=== PATIENT | female | born 1995 | race Two or more races ===

== ENCOUNTER 2017-02-10 21:19 | Emergency (ER) | payer BC ==
[2017-02-10 21:39] VITALS: BP 105/68
--- NOTE | 2017-02-10 22:53 | RAD ---
INDICATION: Left ankle injury. TECHNIQUE: 3 views of the left ankle were obtained. FINDINGS: Soft tissue swelling is noted along the anterolateral aspect of the ankle. No fracture is seen. Joint spaces appear maintained. IMPRESSION: SOFT TISSUE SWELLING, NO FRACTURE IS SEEN.
--- NOTE | 2017-04-21 10:57 | ED ---
Lower Extremity - HPI Summary HPI Summary: Patient was running when she stepped in a pothole and rolled her left ankle. She was unable to continue running but was able to hobble home on the ankle. She had immediate pain and swelling. She denies previous injury to this ankle. No bruising or N/T. - History of Current Complaint Chief Complaint: EDExtremityLower Stated Complaint: LEFT ANKLE INJURY Time Seen by Provider: 02/10/17 21:53 Hx Obtained From: Patient Mechanism Of Injury: Twisted Onset of Pain: Immediate Onset/Duration: Hours Severity Initially: Moderate Severity Currently: Moderate Pain Intensity: 0 Timing: Constant Location: Is Discrete @ - left ankle Character Of Pain: Dull, Aching Associated Signs And Symptoms: Positive: Swelling Aggravating Factor(s): Standing, Movement Alleviating Factor(s): Nothing Able to Bear Weight: Yes - with pain - Allergies/Home Medications Allergies/Adverse Reactions: Allergies Allergy/AdvReac Type Severity Reaction Status Date / Time Sulfa Antibiotics Allergy Unknown Verified 02/10/17 21:29 Reaction Details PMH/Surg Hx/FS Hx/Imm Hx Previously Healthy: Yes Infectious Disease History: No Infectious Disease History: Denies: Traveled Outside the [place] in Last 30 Days - Family History Known Family History: Positive: None - Social History Occupation: Student Lives: Alone Alcohol Use: Rare Substance Use Type: Reports: None Smoking Status (MU): Never Smoked Tobacco Review of Systems Positive: Myalgia, Decreased ROM, Edema Negative: Bruising Negative: Paresthesia, Numbness All Other Systems Reviewed And Are Negative: Yes Physical Exam Triage Information Reviewed: Yes Vital Signs On Initial Exam: Initial Vitals Temp Pulse Resp BP Pulse Ox 98.0 F 89 16 105/68 100 02/10/17 21:36 02/10/17 21:36 02/10/17 21:36 02/10/17 21:36 02/10/17 21:36 Vital Signs Reviewed: Yes Appearance: Positive: Well-Appearing, Well-Nourished, Pain Distress Skin: Positive: Warm, Skin Color Reflects Adequate Perfusion, Dry, Soft Head/Face: Positive: Normal Head/Face Inspection Eyes: Positive: EOMI, JENNA, Conjunctiva Clear ENT: Positive: Hearing grossly normal Respiratory/Lung Sounds: Positive: Breath Sounds Present Cardiovascular: Positive: RRR Musculoskeletal: Positive: Limited @ - movement in all planes limited by pain, Pain @ - TTP lateral malleoli and ATFL, Edema Left - lateral ankle Neurological: Positive: Sensory/Motor Intact, Alert, Oriented to Person Place, Time, NV Bundle Intact Distally, Abnormal Gait Psychiatric: Positive: Affect/Mood Appropriate AVPU Assessment: Alert Diagnostics - Vital Signs Vital Signs Temp Pulse Resp BP Pulse Ox 02/10/17 21:36 98.0 F 89 16 105/68 100 - Laboratory Lab Statement: Any lab studies that have been ordered have been reviewed, and results considered in the medical decision making process. - Radiology No standard instances Xray Interpretation: No Acute Changes Radiology Interpretation Completed By: Radiologist Lower Extremity Course/Dx - Diagnoses Differential Diagnosis/HQI/PQRI: Positive: Arthritis, Bursitis, Cellulitis, Contusion, Dislocation, Fracture (Closed), Sprain, Strain Provider Diagnoses: Left ankle sprain Discharge - Discharge Plan Condition: Stable Disposition: HOME Patient Education Materials: Ankle Sprain (ED), Ankle Stirrup Splint (ED) Referrals: [facility] ALEXI Mcclelland [Primary Care Provider] - Additional Instructions: Use the crutches and wear your splint to protect you as your pain improves. Come out of the splint several times daily to perform gentle range of motion exercises to avoid stiffness. Elevate your ankle above your heart and apply ice for 20 minutes several times daily to decrease swelling and pain. Use ibuprofen 600mg three times daily with meals for the next 3-5 days to decrease swelling and pain as well. Follow-up with Alexi if your symptoms do not begin to improve in the next 5-7 days. It may take several weeks for your ankle to feel better.
== END 2017-02-10 22:46 | disposition home or self-care (01) ==
LOC: ED 21:19
DX: S93.402A Sprain of unspecified ligament of left ankle, initial encounter (principal); W19.XXXA Unspecified fall, initial encounter; Y93.9 Activity, unspecified; Y92.9 Unspecified place or not applicable
CPT/HCPCS: 99282

== ENCOUNTER 2018-02-13 02:51 | Emergency (ER) | payer BC ==
[2018-02-13] MEDS ORDERED: diPHENhydraMINE PO* 25 MG PO ONE (02:57)
[2018-02-13 03:35] LABS: ABS Basophils 0 10^3/ul (0-0.2); ABS Eosinophils 0 10^3/ul (0-0.6); ABS Lymphocytes 2.5 10^3/ul (1.0-4.8); ABS Monocytes 0.6 10^3/ul (0-0.8); ABS Neutrophils 3.3 10^3/ul (1.5-7.7); ABS Nucleated RBC 0 10^3/ul; Eosinophil % 0.4 % (0-6); Hematocrit 40 % (35-47); Hemoglobin 13.2 g/dl (12.0-16.0); Lymphocyte % 38.7 % (25-47); Mean Corpuscular HGB Conc 34 g/dl (31-36); Mean Corpuscular Hemoglobin 29 pg (27-31); Mean Corpuscular Volume 87 fL (80-97); Mean Platelet Volume 7.3 um3 (7.4-10.4); Nucleated Red Blood Cells % 0.1; Platelet Count 268 10^3/ul (150-450); Red Blood Count 4.54 10^6/ul (4.0-5.4); Red Cell Distribution Width 13 % (10.5-15); White Blood Count 6.5 10^3/ul (3.5-10.8)
[2018-02-13 03:52] LABS: EGFR Non-African American 92.4 (>60)
[2018-02-13 05:17] VITALS: BP 98/58
--- NOTE | 2018-02-13 07:16 | ED ---
Emma Myers Gabriel, scribed for Lester Puga MD on 02/13/18 at 0312 . Palpitations / Dysrhythmia - HPI Summary HPI Summary: This patient is a 22 year old F presenting to [facility] accompanied by her friend with a chief complaint of fluttering palpitations. The patient rates the pain 0/ 10 in severity. Patient reports left hand tingling, chest pressure, and right sided cervical lymph node swelling for the past four months. Patient denies drug use and diarrhea. Pt lost 10 lbs in the last 6 months. LNMP began last week. No cardiac history. - History of Current Complaint Chief Complaint: EDDysrhythmPalp Time Seen by Provider: 02/13/18 02:58 Hx Obtained From: Patient Onset/Duration: Still Present Timing: Constant Severity Initially: Mild Severity Currently: Mild Character: Fluttering Associated Signs & Symptoms: Negative - drug use - Allergy/Home Medications Allergies/Adverse Reactions: Allergies Allergy/AdvReac Type Severity Reaction Status Date / Time Sulfa (Sulfonamide Allergy Unknown Verified 02/13/18 03:01 Antibiotics) Reaction Details PMH/Surg Hx/FS Hx/Imm Hx Endocrine/Hematology History: Denies: Hx Diabetes Cardiovascular History: Denies: Hx Cardiomegaly, Hx Valvular Heart Disease Respiratory History: Denies: Hx Chronic Obstructive Pulmonary Disease (COPD) GI History: Denies: Hx Irritable Bowel EENT History: Denies: Hx Deafness Neurological History: Denies: Hx Dementia Psychiatric History: Denies: Hx of Violent Episodes Against Others, Hx Substance Abuse Infectious Disease History: No Infectious Disease History: Denies: Traveled Outside the [place] in Last 30 Days - Family History Known Family History: Positive: Cardiac Disease - father has murmur Negative: Respiratory Disease, Seizure Disorder - Social History Occupation: Employed Full-time - scribe Lives: With Family Alcohol Use: Rare Substance Use Type: Reports: Excessive Caffeine Smoking Status (MU): Never Smoked Tobacco Review of Systems Positive: Other - right sided cervical lymph node swelling Positive: Palpitations, Chest Pain - pressure Negative: Diarrhea Positive: Numbness - in RUE All Other Systems Reviewed And Are Negative: Yes Physical Exam - Summary Physical Exam Summary: Appearance: Well appearing, no pain distress Skin: warm, dry, reflects adequate perfusion Head/face: normal Eyes: EOMI, JENNA ENT: normal Neck: supple, non-tender, no thyromegaly, prominent anterior cervical lymphadenopathy 0.5-1cm. Respiratory: CTA, breath sounds present Cardiovascular: RRR, pulses symmetrical Abdomen: non-tender, soft Bowel Sounds: present Musculoskeletal: normal, strength/ROM intact Neuro: normal, sensory motor intact, A&Ox3 Triage Information Reviewed: Yes Vital Signs On Initial Exam: Initial Vitals Temp Pulse Resp BP Pulse Ox 98.7 F 73 20 125/71 100 02/13/18 02:59 02/13/18 02:59 02/13/18 02:59 02/13/18 02:59 02/13/18 02:59 Vital Signs Reviewed: Yes Diagnostics - Vital Signs Vital Signs Temp Pulse Resp BP Pulse Ox 02/13/18 02:59 98.7 F 73 20 125/71 100 - Laboratory Lab Results: Lab Results 02/13/18 02/13/18 Range/Units 03:25 03:25 WBC 6.5 (3.5-10.8) 10^3/ul RBC 4.54 (4.0-5.4) 10^6/ul Hgb 13.2 (12.0-16.0) g/dl Hct 40 (35-47) % MCV 87 (80-97) fL MCH 29 (27-31) pg MCHC 34 (31-36) g/dl RDW 13 (10.5-15) % Plt Count 268 (150-450) 10^3/ul MPV 7.3 L (7.4-10.4) um3 Neut % (Auto) 51.3 (38-83) % Lymph % (Auto) 38.7 (25-47) % Morris % (Auto) 9.3 H (0-7) % Eos % (Auto) 0.4 (0-6) % Baso % (Auto) 0.3 (0-2) % Absolute Neuts (auto) 3.3 (1.5-7.7) 10^3/ul Absolute Lymphs (auto) 2.5 (1.0-4.8) 10^3/ul Absolute Monos (auto) 0.6 (0-0.8) 10^3/ul Absolute Eos (auto) 0 (0-0.6) 10^3/ul Absolute Basos (auto) 0 (0-0.2) 10^3/ul Absolute Nucleated RBC 0 10^3/ul Nucleated RBC % 0.1 Sodium 140 (139-145) mmol/L Potassium 4.2 (3.5-5.0) mmol/L Chloride 106 (101-111) mmol/L Carbon Dioxide 25 (22-32) mmol/L Anion Gap 9 (2-11) mmol/L BUN 11 (6-24) mg/dL Creatinine 0.78 (0.51-0.95) mg/dL Est GFR ( Amer) 118.8 (>60) Est GFR (Non-Af Amer) 92.4 (>60) BUN/Creatinine Ratio 14.1 (8-20) Glucose 100 (70-100) mg/dL Calcium 9.5 (8.6-10.3) mg/dL TSH 2.39 (0.34-5.60) mcIU/mL Free T4 1.24 H (0.61-1.12) ng/dL Result Diagrams: 02/13/18 03:25 02/13/18 03:25 Lab Statement: Any lab studies that have been ordered have been reviewed, and results considered in the medical decision making process. - EKG 0247 Cardiac Rate: NL EKG Rhythm: Sinus Rhythm - at 75 BPM Re-Evaluation - Re-Evaluation First Eval Re-Evaluation Time: 04:39 Change: Improved Comment: Patients symptoms have resolved. Course/Dx - Course Course Of Treatment: pt with palpitations at home but HR never over 75 here. Sinus arrhythmia only here. Labs benign. TSH wnl. No indep risk factors. F/U with PMD on arrival back in [place]. - Diagnoses Differential Diagnosis/HQI/PQRI: Positive: AV Block, Cardiomyopathy, Medication Induced, Panic Disorder, Paroxymal SVT, Pulmonary Embolism Provider Diagnoses: Palpitations Discharge - Sign-Out/Discharge Documenting (check all that apply): Discharge - Discharge Plan Condition: Good Disposition: HOME Patient Education Materials: Heart Palpitations (ED) Referrals: No Primary Care Phys,NOPCP [Primary Care Provider] - Additional Instructions: See your doctor on arrival back in [place] Friday. Drink plenty of fluids. Return with persistent symptoms, lightheadedness, passing out, chest pain, worse or other concerns. - Billing Disposition and Condition Condition: GOOD Disposition: HOME The documentation as recorded by the scribe, Catrer,Anatoliy accurately reflects the service I personally performed and the decisions made by me, Lester Puga MD.
== END 2018-02-13 05:16 | disposition home or self-care (01) ==
LOC: ED 02:51
DX: R00.2 Palpitations (principal)
CPT/HCPCS: 36415; 80048; 84439; 84443; 85025; 93005; 99282; A9270-GY